=== PATIENT | male | born 1995 | race Caucasian/White ===

== ENCOUNTER 2018-09-05 23:29 | Emergency (ER) | payer BC, OTHER ==
[2018-09-06] MEDS ORDERED: Magnesium CITRATE* 300 ML BTL PO ONE (02:28)
[2018-09-06] MEDS ORDERED: Bisacodyl SUPP* 10 MG SUPP PR ONE (02:28)
--- NOTE | 2018-09-06 02:35 | ED ---
Abdominal Pain/Male - HPI Summary HPI Summary: Pt is 23 y/o M who presents to ED c/o abdominal discomfort and uncomfortable bowel movements since 2 days ago. He states that both are not painful, just uncomfortable. Denies vomiting or fever. - History of Current Complaint Chief Complaint: EDRectalPain Stated Complaint: RECTAL PAIN Time Seen by Provider: 09/06/18 01:51 Hx Obtained From: Patient Onset/Duration: Lasting Days, Still Present Severity Currently: None Pain Intensity: 0 Pain Scale Used: 0-10 Numeric Character: Other: - Uncomfortable Aggravating Factor(s): Nothing Alleviating Factor(s): Nothing Associated Signs And Symptoms: Positive: Other - Uncomfortable bowel movements. Negative: Fever, Vomiting - Allergies/Home Medications Allergies/Adverse Reactions: Allergies Allergy/AdvReac Type Severity Reaction Status Date / Time prednisone Allergy Hives Verified 09/05/18 23:37 PMH/Surg Hx/FS Hx/Imm Hx Endocrine/Hematology History: Reports: Hx Diabetes Neurological History: Denies: Hx Dementia - Immunization History Date of Tetanus Vaccine: utd Date of Influenza Vaccine: none Infectious Disease History: No Infectious Disease History: Denies: Traveled Outside the [place] in Last 30 Days - Social History Alcohol Use: Occasionally Substance Use Type: Reports: None Smoking Status (MU): Former Smoker Review of Systems Negative: Fever Positive: Abdominal Pain. Negative: Vomiting All Other Systems Reviewed And Are Negative: Yes Physical Exam - Summary Physical Exam Summary: VITAL SIGNS: Reviewed. GENERAL: Patient is a well-developed and nourished male who is lying comfortable in the stretcher. Patient is not in any acute respiratory distress. HEAD AND FACE: No signs of trauma. No ecchymosis, hematomas or skull depressions. No sinus tenderness. EYES: PERRLA, EOMI x 2, No injected conjunctiva, no nystagmus. EARS: Hearing grossly intact. Ear canals and tympanic membranes are within normal limits. MOUTH: Oropharynx within normal limits. NECK: Supple, trachea is midline, no adenopathy, no JVD, no carotid bruit, no c- spine tenderness, neck with full ROM. CHEST: Symmetric, no tenderness at palpation LUNGS: Clear to auscultation bilaterally. No wheezing or crackles. CVS: Regular rate and rhythm, S1 and S2 present, no murmurs or gallops appreciated ABDOMEN: Soft, non-tender. No signs of distention. No rebound no guarding, and no masses palpated. Bowel sounds are normal. RECTAL EXAM: No masses and no fecal impaction. EXTREMITIES: FROM in all major joints, no edema, no cyanosis or clubbing. NEURO: Alert and oriented x 3. No acute neurological deficits. Speech is normal and follows commands. SKIN: Dry and warm Triage Information Reviewed: Yes Vital Signs On Initial Exam: Initial Vitals Temp Pulse Resp BP Pulse Ox 97.2 F 65 16 152/88 98 09/05/18 23:30 09/05/18 23:30 09/05/18 23:30 09/05/18 23:30 09/05/18 23:30 Vital Signs Reviewed: Yes Diagnostics - Vital Signs Vital Signs Temp Pulse Resp BP Pulse Ox 09/05/18 23:30 97.2 F 65 16 152/88 98 - Laboratory Lab Statement: Any lab studies that have been ordered have been reviewed, and results considered in the medical decision making process. Abdominal Pain Fem Course/Dx - Course Course Of Treatment: Pt is 23 y/o M who presents to ED c/o abdominal discomfort and uncomfortable bowel movements. He states that they are not painful, just uncomfortable. Denies vomiting or fever. Rectal exam revealed no masses and no fecal impaction. Abdomen X-ray showed increased amount of stool throughout colon. In the ED course pt was given citrate and Dulcolax. Pt diagnosed with constipation and discharged home. - Diagnoses Provider Diagnoses: Constipation Discharge - Sign-Out/Discharge Documenting (check all that apply): Patient Departure - Discharge - Discharge Plan Condition: Stable Disposition: HOME Patient Education Materials: Enteritis (ED) Referrals: [facility] [Outside] - 2 Days Additional Instructions: RETURN TO THE EMERGENCY DEPARTMENT FOR CHANGING OR WORSENING SYMPTOMS. FOLLOW UP WITH PCP IN 1-2 DAYS. - Attestation Statements Document Initiated by Scribe: Yes Documenting Scribe: Daily Bay Provider For Whom Scribe is Documenting (Include Credential): Dr. Julius Andrea MD Scribe Attestation: Daily Gardner, scribed for Dr. Julius Andrea MD on 09/06/18 at 0448.
[2018-09-06 03:18] VITALS: BP 0/0
--- NOTE | 2018-09-06 08:40 | RAD ---
Indication: Constipation. Flat and upright views of the abdomen demonstrates no free air. Stool is present throughout the colon. No dilated loops of bowel are noted. IMPRESSION: No free air or obstruction is noted.
== END 2018-09-06 03:16 | disposition home or self-care (01) ==
LOC: ED 23:29
DX: R10.9 Unspecified abdominal pain (principal); K59.00 Constipation, unspecified; Z87.891 Personal history of nicotine dependence
CPT/HCPCS: 74019; 99282; A9270-GY